=== PATIENT | female | born 1980 | race American Indian/Alaskan Native ===

== ENCOUNTER 2016-10-12 05:44 | Emergency (ER) | payer MEDICAID ==
[2016-10-12] MEDS ORDERED: Ondansetron 4 MG Tab.DIS PO ONE ×2 (06:12→06:42)
[2016-10-12] MEDS ORDERED: Alum Hydroxide/Mag Hydroxide 15 ML, Lidocaine 2% 15 ML PO ONE ×2 (06:13)
[2016-10-12 06:17] VITALS: BP 148/94
--- NOTE | 2016-10-12 06:20 | EDM.PDOC ---
ED HPI GI/ABDOMINAL - General Chief Complaint: Gastrointestinal Problem Stated Complaint: STOMACH PAIN Time Seen by Provider: 10/12/16 06:10 Source: Reports: Patient, Old records History Limitations: Reports: No limitations - History of Present Illness INITIAL COMMENTS - FREE TEXT/NARRATIVE: Epigastric and LUQ abdominal pain that began around 10 pm last night and progressed. Has had vomiting. No bleeding. No fever. No change in bowel habits. Drinks a lot of caffeine containing beverages. No self tx. Has had similar, less severe pain in the past. No melena. Symptom Onset Date: 10/11/16 Symptom Onset Time: 22:00 Timing/Duration: Reports: Hour(s): Location: other (epigastric) Quality: Reports: burning Severity: moderate Improves with: Reports: other (none) Worsens with: Reports: other (unknown) - Related Data Allergies/ADRs: Allergies Allergy/AdvReac Type Severity Reaction Status Date / Time No Known Allergies Allergy Verified 10/12/16 06:09 Home Meds: Home Meds busPIRone [Buspar] 30 mg PO BID 03/20/14 [History] Amphetamine/Dextroamphetamine [Adderall XR] 20 mg PO DAILY 12/11/14 [History] Omeprazole 40 mg PO DAILY #14 cap.sr 10/12/16 [Rx] Ondansetron [Zofran ODT] 4 mg PO Q6H PRN #7 tab.dis 10/12/16 [Rx] Past Medical History HEENT History: Reports: None Cardiovascular History: Reports: None Respiratory History: Reports: Other (see below) Other Respiratory History: STATES I HAVE CHRONIC COUGH Gastrointestinal History: Reports: Gastritis, GERD, Helicobacter pylori, Other ( see below) Other Gastrointestinal History: ANAL FISSURE Genitourinary History: Reports: None 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: , Other (see below) Other OB/BYN History: V PARA IV AB I D&C FOR RETAINED POST AB Musculoskeletal History: Reports: Back pain, chronic Neurological History: Reports: None Other Neuro History: DJD OF LUMBAR SPINE Psychiatric History: Reports: ADHD, Addiction, Anxiety, Depression, Suicide attempt Endocrine/Metabolic History: Reports: Obesity/BMI 30+ Hematologic History: Reports: None Immunologic History: Reports: None Oncologic (Cancer) History: Reports: None Dermatologic History: Reports: None - Infectious Disease History Infectious Disease History: Reports: Chicken pox - Past Surgical History Head Surgeries/Procedures: Reports: None HEENT Surgical History: Reports: Adenoidectomy, Tonsillectomy GI Surgical History: Reports: Colonoscopy, EGD Female Surgical History: Reports: Tubal ligation Social & Family History - Family History Other HEENT Family History: SEE HX - Tobacco Use Smoking Status *Q: Current Every Day Smoker Years of Tobacco use: 20 Packs/Tins Daily: 0.5 - Caffeine Use Caffeine Use: Reports: None - Alcohol Use Days Per Week of Alcohol Use: 0 - Recreational Drug Use Recreational Drug Use: Yes Drug Use in Last 12 Months: Yes Recreational Drug Type: Reports: Marijuana/Hashish Other Recreational Drug Type: SMOKED POT 06/29. STATES HAD A COUPLE BOWLS. Recreational Drug Use Frequency: Binges Recreational Drug Last Use: 06/29 - Living Situation & Occupation Living situation: Reports: single ED ROS GENERAL - Review of Systems Review Of Systems: See Below Constitutional: Reports: no symptoms HEENT: Reports: No symptoms Respiratory: Reports: No Symptoms Cardiovascular: Reports: No symptoms GI/Abdominal: Reports: Abdominal pain (epigastric), Decreased appetite, Nausea, Vomiting. Denies: Constipation, Diarrhea, Distension, Hematemesis, Hematochezia , Melena, Stool incontinence : Reports: no symptoms Musculoskeletal: Reports: no symptoms Skin: Reports: no symptoms Neurological: Reports: No Symptoms Psychiatric: Reports: No symptoms Hematologic/Lymphatic: Reports: no symptoms ED EXAM, GI/ABD - Physical Exam Exam: See Below Exam Limited By: No limitations General Appearance: alert, WD/WN, anxious, mild distress Eyes: bilateral: normal appearance Ears: normal external exam, normal canal, hearing grossly normal, normal TMs Nose: normal inspection, normal mucosa, no blood Throat/Mouth: Normal inspection, Normal lips, Normal teeth, Normal gums, Normal oropharynx, Normal voice, No airway compromise Head: atraumatic, normocephalic Neck: normal inspection, supple, non-tender Respiratory/Chest: no respiratory distress, lungs clear, normal breath sounds, no accessory muscle use Cardiovascular: regular rate, rhythm, no edema GI/Abdominal: soft, no distention, tenderness (epigastrium only). No: distention, guarding Back Exam: normal inspection Extremities: normal inspection, normal range of motion, non-tender, no pedal edema Neurological: alert, oriented, CN II-XII intact, normal cognition, normal gait Psychiatric: anxious Skin Exam: Warm, Dry, Intact, Normal color, No rash Lymphatic: no adenopathy Course - Vital Signs Text/Narrative:: Zofran ODT 4 mg SL, GI cocktail po-much better Zofran ODT 4 mg SL, Acetaminophen 1000 mg po, Protonix 40 mg po, LR 1000 ml IV, Reglan 10 mg IV Last Recorded V/S: Last Vital Signs Temp 35.4 C 10/12/16 06:16 Pulse 86 10/12/16 06:16 Resp 20 10/12/16 06:16 BP 148/94 H 10/12/16 06:16 Pulse Ox 98 10/12/16 06:16 - Orders/Labs/Meds Meds: Medications Discontinued Medications Generic Name Dose Route Start Last Admin Trade Name Mikelq PRN Reason Stop Dose Admin Acetaminophen 1,000 mg 10/12/16 06:42 10/12/16 07:06 Tylenol Extra Strength PO 10/12/16 06:43 1,000 mg ONETIME ONE Administration Al Hydroxide/Mg Hydroxide 15 0 ml 10/12/16 06:13 10/12/16 06:32 ml/ Lidocaine HCl 15 ml PO 10/12/16 06:14 15 ml ONETIME ONE Administration Lactated Ringer's 1,000 mls @ 1,000 mls/hr 10/12/16 07:41 10/12/16 08:16 Ringers, Lactated IV 10/12/16 08:40 1,000 mls/hr BOLUS ONE Administration Metoclopramide HCl 10 mg 10/12/16 07:42 10/12/16 08:16 Reglan IVPUSH 10/12/16 07:43 10 mg ONETIME ONE Administration Ondansetron HCl 4 mg 10/12/16 06:12 10/12/16 06:21 Zofran Odt PO 10/12/16 06:13 4 mg ONETIME ONE Administration Ondansetron HCl 4 mg 10/12/16 06:42 10/12/16 07:06 Zofran Odt PO 10/12/16 06:43 4 mg ONETIME ONE Administration Pantoprazole Sodium 40 mg 10/12/16 06:43 10/12/16 07:06 Protonix PO 10/12/16 06:44 40 mg NOW STA Administration Pantoprazole Sodium 40 mg 10/12/16 07:41 10/12/16 08:16 Protonix Iv IVPUSH 10/12/16 07:42 40 mg ONETIME ONE Administration Departure - Departure Time of Disposition: 09:12 Disposition: Home, Self-Care 01 Condition: good Clinical Impression: Gastritis Qualifiers: Gastritis type: unspecified gastritis Chronicity: acute Gastritis bleeding: without bleeding Qualified Code(s): K29.00 - Acute gastritis without bleeding Prescriptions: Omeprazole 40 mg PO DAILY #14 cap.sr Ondansetron [Zofran ODT] 4 mg PO Q6H PRN #7 tab.dis PRN Reason: Nausea Referrals: Quita Main NP [Primary Care Provider] - Forms: ED Department Discharge Additional Instructions: Take omeprazole every day. Use Zofran as directed for nausea. Take acetaminophen 1000 mg every 6 hrs for pain relief. Take Maalox 30 ml after meals and at bedtime for added relief. Avoid: caffeine, carbonated beverages, tobacco, alcohol, ibuprofen, Aleve, or aspirin. Recheck with your provider later this week, call for an appt.
[2016-10-12] MEDS ORDERED: Acetaminophen 500 MG Tab PO ONE (06:42)
[2016-10-12] MEDS ORDERED: Pantoprazole 40 MG Tab.CR PO STA (06:43)
[2016-10-12] MEDS ORDERED: Lactated Ringers 1,000 ML IV ONE (07:41)
[2016-10-12] MEDS ORDERED: Pantoprazole 40 MG Vial IVPUSH ONE (07:41)
[2016-10-12] MEDS ORDERED: Metoclopramide 10 MG/2 ML SDV IVPUSH ONE (07:42)
== END 2016-10-12 09:45 | disposition home or self-care (01) ==
LOC: FB.ED 05:44
DX: K29.00 Acute gastritis without bleeding (principal); F17.210 Nicotine dependence, cigarettes, uncomplicated
CPT/HCPCS: 96361; 96374; 96375; 99284; A9270; C9113; J2765; J7120

== ENCOUNTER 2017-01-30 22:49 | Emergency (ER) | payer MEDICAID ==
[2017-01-30 23:15] VITALS: BP 106/66
[2017-01-30] MEDS ORDERED: Ondansetron 4 MG Tab.DIS PO ONE (23:17)
[2017-01-30] MEDS ORDERED: Acetaminophen 500 MG Tab PO ONE (23:18)
[2017-01-30] MEDS ORDERED: Dicyclomine 10 MG Cap PO ONE (23:18)
--- NOTE | 2017-01-30 23:24 | EDM.PDOC ---
ED HPI GENERAL MEDICAL PROBLEM - General Chief Complaint: Abdominal Pain Stated Complaint: TIRED/NOT FEELING WELL Time Seen by Provider: 01/30/17 23:10 Source of Information: Reports: Patient, Old Records History Limitations: Reports: No Limitations - History of Present Illness INITIAL COMMENTS - FREE TEXT/NARRATIVE: 36 yo female here with low, central abdominal pain since yesterday that is getting worse. Has nausea without vomiting. No fever. No change in bowels. Pain seems to wax and wane somewhat. No self tx. Recently took out a tampon that had been in place for an extended period of time. No dysuria. Hx of bacterial vaginosis, last tx for this 3 weeks ago. Admits to use of marijuana and methamphetamine earlier today. Onset: Other Onset Date: 01/28/17 Duration: Day(s):, Getting Worse Location: Reports: Abdomen Quality: Reports: Other (crampy) Severity: Moderate Improves with: Reports: None Worsens with: Reports: None Context: Reports: Other (no hx of the same.) Associated Symptoms: Reports: Nausea/Vomiting (no vomiting). 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) (none) Left Lower Abdomen Pain Score (Numeric/FACES): 4 - Related Data Allergies Allergy/AdvReac Type Severity Reaction Status Date / Time No Known Allergies Allergy Verified 10/12/16 06:09 Home Meds: Home Meds busPIRone [Buspar] 30 mg PO BID 03/20/14 [History] Amphetamine/Dextroamphetamine [Adderall XR] 20 mg PO DAILY 12/11/14 [History] Omeprazole 40 mg PO DAILY #14 cap.sr 10/12/16 [Rx] Ondansetron [Zofran ODT] 4 mg PO Q6H PRN #7 tab.dis 10/12/16 [Rx] Dicyclomine [Bentyl] 20 mg PO QIDACANDBED PRN #14 tablet 01/31/17 [Rx] Sulfamethoxazole/Trimethoprim [Bactrim Ds Tablet] 1 each PO BID #10 tablet 01/31 [Rx] Past Medical History HEENT History: Reports: None Cardiovascular History: Reports: None Respiratory History: Reports: Other (See Below) Other Respiratory History: STATES I HAVE CHRONIC COUGH Gastrointestinal History: Reports: Gastritis, GERD, Helicobacter Pylori, Other ( See Below) Other Gastrointestinal History: ANAL FISSURE Genitourinary History: Reports: None 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: , Other (See Below) Other OB/BYN History: V PARA IV AB I D&C FOR RETAINED POST AB Musculoskeletal History: Reports: Back Pain, Chronic Neurological History: Reports: None Other Neuro History: DJD OF LUMBAR SPINE Psychiatric History: Reports: ADHD, Addiction, Anxiety, Depression, Suicide Attempt Endocrine/Metabolic History: Reports: Obesity/BMI 30+ Hematologic History: Reports: None Immunologic History: Reports: None Oncologic (Cancer) History: Reports: None Dermatologic History: Reports: None - Infectious Disease History Infectious Disease History: Reports: Chicken Pox - Past Surgical History Female Surgical History: Reports: Tubal Ligation Social & Family History - Family History Other HEENT Family History: SEE HX - Tobacco Use Smoking Status *Q: Current Every Day Smoker Years of Tobacco use: 20 Packs/Tins Daily: 0.5 - Caffeine Use Caffeine Use: Reports: None - Alcohol Use Days Per Week of Alcohol Use: 0 - Recreational Drug Use Recreational Drug Use: Yes Drug Use in Last 12 Months: Yes Recreational Drug Type: Reports: Marijuana/Hashish Other Recreational Drug Type: SMOKED POT 06/29. STATES HAD A COUPLE BOWLS. Recreational Drug Use Frequency: Binges Recreational Drug Last Use: 06/29 - Living Situation & Occupation Living situation: Reports: Single ED ROS GENERAL - Review of Systems Review Of Systems: See Below Constitutional: Reports: No Symptoms, Decreased Appetite. Denies: Fever, Chills HEENT: Reports: No Symptoms Respiratory: Reports: No Symptoms Cardiovascular: Reports: No Symptoms Endocrine: Reports: No Symptoms GI/Abdominal: Reports: Abdominal Pain, Anorexia, Decreased Appetite, Nausea. Denies: Black Stool, Bloody Stool, Constipation, Diarrhea, Difficulty Swallowing , Distension, Flatus, Hematemesis, Hematochezia, Melena, Stool Incontinence, Vomiting : Reports: No Symptoms Musculoskeletal: Reports: No Symptoms Skin: Reports: No Symptoms Neurological: Reports: No Symptoms Psychiatric: Reports: No Symptoms ED EXAM, GI/ABD - Physical Exam Exam: See Below Exam Limited By: No Limitations General Appearance: Alert, WD/WN, No Apparent Distress Eyes: Bilateral: Normal Appearance Ears: Normal External Exam, Normal Canal, Hearing Grossly Normal, Normal TMs Nose: Normal Inspection, Normal Mucosa, No Blood Throat/Mouth: Normal Inspection, Normal Lips Head: Atraumatic, Normocephalic Neck: Normal Inspection, Supple, Non-Tender Respiratory/Chest: No Respiratory Distress, Lungs Clear, Normal Breath Sounds, No Accessory Muscle Use Cardiovascular: Regular Rate, Rhythm, No Edema GI/Abdominal: Soft, No Distention, Hyperactive Bowel Sounds, Tenderness (mild diffuse, worse suprapubic area.). No: Guarding, Rebound, Rigidity, Hernia, McBurney's Sign, Mckenna's Sign Back Exam: Normal Inspection. No: CVA Tenderness (R), CVA Tenderness (L) Extremities: Normal Inspection, Normal Range of Motion, Non-Tender, No Pedal Edema Neurological: Alert, Oriented, CN II-XII Intact, Normal Cognition, No Motor/ Sensory Deficits Psychiatric: Normal Affect, Normal Mood Skin Exam: Warm, Dry, Intact, Normal Color, No Rash Lymphatic: No Adenopathy Course - Vital Signs Text/Narrative:: Orthostats-negative acetaminophen 1000 mg po, dicyclomine 20 mg po, Zofran ODT 4 mg SL Last Recorded V/S: Last Vital Signs Temp 36.6 C 01/30/17 22:55 Pulse 107 H 01/30/17 22:55 Resp 18 01/30/17 22:55 BP 106/66 01/30/17 22:55 Pulse Ox 100 01/30/17 22:55 - Orders/Labs/Meds Orders: Active Orders 24 hr Category Date Time Status CBC W/O DIFF,HEMOGRAM [HEME] Stat Lab 01/30/17 23:16 Ordered CRP [C-REACTIVE PROTEIN] [CHEM] Stat Lab 01/30/17 23:16 Ordered HCG QUALITATIVE,URINE [URCHEM] Stat Lab 01/30/17 23:17 Uncollected Meds: Medications Discontinued Medications Generic Name Dose Route Start Last Admin Trade Name Freq PRN Reason Stop Dose Admin Acetaminophen 1,000 mg 01/30/17 23:18 Tylenol Extra Strength PO 01/30/17 23:19 ONETIME ONE Dicyclomine HCl 20 mg 01/30/17 23:18 Bentyl PO 01/30/17 23:19 ONETIME ONE Ondansetron HCl 4 mg 01/30/17 23:17 Zofran Odt PO 01/30/17 23:18 ONETIME ONE Departure - Departure Time of Disposition: 00:20 Disposition: Home, Self-Care 01 Condition: Good Clinical Impression: Cystitis, Intestinal cramps - Discharge Information - My Orders Last 24 Hours: My Active Orders 01/30/17 23:16 CBC W/O DIFF,HEMOGRAM [HEME] Stat CRP [C-REACTIVE PROTEIN] [CHEM] Stat 01/30/17 23:17 HCG QUALITATIVE,URINE [URCHEM] Stat - Assessment/Plan Last 24 Hours: My Active Orders 01/30/17 23:16 CBC W/O DIFF,HEMOGRAM [HEME] Stat CRP [C-REACTIVE PROTEIN] [CHEM] Stat 01/30/17 23:17 HCG QUALITATIVE,URINE [URCHEM] Stat
[2017-01-31] MEDS ORDERED: Sulfamethoxazole/Trimethoprim 800-160 MG Tab PO ONE (00:12)
== END 2017-01-31 00:25 | disposition home or self-care (01) ==
LOC: FB.ED 22:49
DX: N30.90 Cystitis, unspecified without hematuria (principal); F41.9 Anxiety disorder, unspecified; F32.9 Major depressive disorder, single episode, unspecified; E66.9 Obesity, unspecified; F17.210 Nicotine dependence, cigarettes, uncomplicated; Z98.51 Tubal ligation status; Z79.899 Other long term (current) drug therapy; Z68.25 Body mass index [BMI] 25.0-25.9, adult
CPT/HCPCS: 36415; 81001; 85027; 86140; 87086; 87088; 99283; A9270; 87186

== ENCOUNTER 2018-09-04 07:33 | Emergency (ER) | payer MEDICAID ==
[2018-09-04 08:06] VITALS: BP 121/67
--- NOTE | 2018-09-04 08:06 | EDM.PDOC ---
ED HPI GENERAL MEDICAL PROBLEM - General Chief Complaint: Genitourinary Problem Stated Complaint: KIDNEY INFECTION Time Seen by Provider: 09/04/18 07:48 Source of Information: Reports: Patient History Limitations: Reports: No Limitations - History of Present Illness INITIAL COMMENTS - FREE TEXT/NARRATIVE: This 38-year-old 5 para 4104 woman with LMP approximately 08/28/18 presents with 2 day history of dysuria suprapubic discomfort chronic low back pain with exacerbation of the latter. Her last marijuana and methamphetamine was approximately a week ago hashish 2 years ago and has a past medical history of drug abuse here, pylori positive gastritis, cystitis, IBS, ADHD, TNA, tubal, smokes 1/2-1/4 pack per day , weight loss from 185 pounds 150 LESS PROBLEMS, THEN STRIKING IN THE PAST, ANAL FISSURE with surgery sphincterotomy 06/30/16. - Related Data Allergies Allergy/AdvReac Type Severity Reaction Status Date / Time No Known Allergies Allergy Verified 09/04/18 08:10 Home Meds: Home Meds busPIRone [Buspar] 30 mg PO BID 03/20/14 [History] Amphetamine/Dextroamphetamine [Adderall XR] 20 mg PO DAILY 12/11/14 [History] Omeprazole 40 mg PO DAILY #14 cap.sr 10/12/16 [Rx] Ondansetron [Zofran ODT] 4 mg PO Q6H PRN #7 tab.dis 10/12/16 [Rx] Dicyclomine [Bentyl] 20 mg PO QIDACANDBED PRN #14 tablet 01/31/17 [Rx] Sulfamethoxazole/Trimethoprim [Bactrim Ds Tablet] 1 each PO BID #10 tablet 01/31 [Rx] Past Medical History HEENT History: Reports: None Cardiovascular History: Reports: None Respiratory History: Reports: Other (See Below) Other Respiratory History: STATES I HAVE CHRONIC COUGH Gastrointestinal History: Reports: Gastritis, GERD, Helicobacter Pylori, Other ( See Below) Other Gastrointestinal History: ANAL FISSURE Genitourinary History: Reports: None 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: , 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 (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 Below) 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: V PARA IV AB I D&C FOR RETAINED POST AB Musculoskeletal History: Reports: Back Pain, Chronic Neurological History: Reports: None Other Neuro History: DJD OF LUMBAR SPINE Psychiatric History: Reports: ADHD, Addiction, Anxiety, Depression, Suicide Attempt Endocrine/Metabolic History: Reports: Obesity/BMI 30+ Hematologic History: Reports: None Immunologic History: Reports: None Oncologic (Cancer) History: Reports: None Dermatologic History: Reports: None - Infectious Disease History Infectious Disease History: Reports: Chicken Pox - Past Surgical History Female Surgical History: Reports: Tubal Ligation Social & Family History - Family History Other HEENT Family History: SEE HX - Caffeine Use Caffeine Use: Reports: None - Living Situation & Occupation Living situation: Reports: Single ED ROS GENERAL - Review of Systems Review Of Systems: ROS reveals no pertinent complaints other than HPI. ED EXAM, RENAL/ - Physical Exam Exam: See Below Text/Narrative:: Pleasant woman well muscled well-nourished woman laying on her stomach because of her left flank discomfort in moderate distress attended by another male Exam Limited By: No Limitations General Appearance: Alert, Moderate Distress Eye Exam: Bilateral Eye: Normal Inspection Ears: Normal External Exam Nose: Normal Inspection Throat/Mouth: Normal Inspection Head: Atraumatic Neck: Normal Inspection Respiratory/Chest: No Respiratory Distress, Lungs Clear, Normal Breath Sounds, No Accessory Muscle Use, Chest Non-Tender Cardiovascular: Normal Peripheral Pulses, Regular Rate, Rhythm, No Edema, No Murmur, No Rub GI/Abdominal: Normal Bowel Sounds, Soft, Other (Suprapubic tenderness and mild left CVA discomfort with percussion) (Female) Exam: Deferred Rectal (Female) Exam: Deferred Back Exam: Normal Inspection Extremities: Normal Inspection, Normal Range of Motion, Non-Tender, No Pedal Edema, Normal Capillary Refill Neurological: Alert, Oriented, CN II-XII Intact, Normal Cognition, Normal Gait, Normal Reflexes, No Motor/Sensory Deficits Psychiatric: Normal Affect Skin Exam: Warm, Intact, Normal Color Lymphatic: No Adenopathy Course - Vital Signs Last Recorded V/S: Last Vital Signs Temp 36.6 C 09/04/18 08:00 Pulse 91 09/04/18 08:00 Resp 18 09/04/18 08:00 BP 121/67 09/04/18 08:00 Pulse Ox 100 09/04/18 08:00 - Orders/Labs/Meds Orders: Active Orders 24 hr Category Date Time Status UA W/MICROSCOPIC [URIN] Stat Lab 09/04/18 07:45 Received Departure - Departure Time of Disposition: 08:05 (Urinary tract infection with suggestion of pyelonephritis plan treat with Cipro 500 mg twice a day 10 days, follow-up in 7 days . She has been treated for actively for potential STD with 150 mg Rocephin IM and 1 g azithromycin in the ED) Disposition: Home, Self-Care 01 Condition: Good Clinical Impression: Cystitis, Pyelonephritis - Discharge Information *PRESCRIPTION DRUG MONITORING PROGRAM REVIEWED*: Not Applicable *COPY OF PRESCRIPTION DRUG MONITORING REPORT IN PATIENT SURINDER: Not Applicable Instructions: Pyelonephritis, Adult, [id number] Referrals: Quita Main NP [Primary Care Provider] - Forms: ED Department Discharge Additional Instructions: Cystitis Treatment Septra DS 1 twice a day 6 tablets Follow-up with her doctor as needed in the next 7-14 days earlier if symptoms don't relent - My Orders Last 24 Hours: My Active Orders 09/04/18 07:45 UA W/MICROSCOPIC [URIN] Stat - Assessment/Plan Last 24 Hours: My Active Orders 09/04/18 07:45 UA W/MICROSCOPIC [URIN] Stat
[2018-09-04] MEDS ORDERED: cefTRIAXone 250 MG Vial IM ONE (08:17)
[2018-09-04] MEDS ORDERED: Azithromycin 250 MG Tab PO ONE (08:18)
[2018-09-06 02:11] LABS: CHLAMYDIA TRACHOMATIS, NAA Negative (Negative); NEISSERIA GONORRHOEAE, NAA Negative (Negative)
== END 2018-09-04 08:40 | disposition home or self-care (01) ==
LOC: FB.ED 07:33
DX: N12 Tubulo-interstitial nephritis, not specified as acute or chronic (principal); N30.90 Cystitis, unspecified without hematuria; K21.9 Gastro-esophageal reflux disease without esophagitis; F41.9 Anxiety disorder, unspecified; F32.9 Major depressive disorder, single episode, unspecified; F17.210 Nicotine dependence, cigarettes, uncomplicated; Z79.899 Other long term (current) drug therapy; Z98.51 Tubal ligation status
CPT/HCPCS: 80305; 81001; 87086; 87088; 87186; 87491; 87591; 96372; 99283; A9270; J0696

== ENCOUNTER 2023-04-17 21:14 | Emergency (ER) | payer MEDICAID ==
[2023-04-17] MEDS ORDERED: Sodium Chloride 0.9% 1,000 ML IV SCH (21:45)
[2023-04-17] MEDS ORDERED: Ondansetron 4 MG/2 ML SDV IVPUSH ONE (21:46)
[2023-04-17] MEDS ORDERED: Pantoprazole 40 MG Vial IVPUSH ONE (22:03)
[2023-04-17] MEDS: Ondansetron 4 MG/2 ML SDV IVPUSH ONE ×2 (22:20→22:30)
[2023-04-17 22:31] LABS: BILIRUBIN,URINE NEGATIVE (NEGATIVE); GLUCOSE,URINE NORMAL (NORMAL); KETONES,URINE NEGATIVE (NEGATIVE); LEUKOCYTE ESTERASE,URINE NEGATIVE (NEGATIVE); NITRITE,URINE NEGATIVE (NEGATIVE); OCCULT BLOOD,URINE NEGATIVE (NEGATIVE); PROTEIN,URINE NEGATIVE (NEGATIVE); UROBILINOGEN,URINE NORMAL (NEGATIVE)
[2023-04-17 22:31] LABS: BASOPHILS PERCENT AUTO 0.5 % (0.2-1.5); EOSINOPHILS PERCENT AUTO 0.3 % (0.6-8.1); HEMATOCRIT 38.6 % (34.2-48.2); LYMPHOCYTES ABSOLUTE AUTO 1.1 x10-3/uL (1.0-4.4); LYMPHOCYTES PERCENT AUTO 11.4 % (18.4-52.1); MEAN CORPUSCULAR HGB CONC 33.6 g/dL (31.9-34.8); MEAN CORPUSCULAR VOLUME 80.5 fL (76.7-100.5); MEAN PLATELET VOLUME 7.2 fL (7.1-12.4); MONOCYTES ABSOLUTE AUTO 0.6 x10-3/uL (0.3-1.0); MONOCYTES PERCENT AUTO 6.3 % (4.4-15.7); NEUTROPHILS ABSOLUTE AUTO 7.7 x10-3/uL (1.5-6.3); NEUTROPHILS PERCENT AUTO 81.5 % (30.8-76.2); PLATELET COUNT,PLT 433 x10(3)uL (151-488); RED CELL DISTRIBUTION WIDTH 15.2 % (12.3-16.5); WHITE BLOOD CELL COUNT,WBC 9.4 x10-3/uL (3.0-10.3)
[2023-04-17 22:32] LABS: BLOOD UREA NITROGEN,BUN 6 mg/dL (7-18); BUN/CREATININE RATIO 8.6 (9-20); CALCIUM 9.4 mg/dL (8.6-10.2); CARBON DIOXIDE,CO2 24 mmol/L (21-32); CHLORIDE,CL 102 mmol/L (100-110); CREATININE 0.7 mg/dL (0.55-1.02); ESTIMATED GFR 112 mL/min (>60); GLUCOSE RANDOM 118 mg/dL (80-116); SODIUM,NA 137 mmol/L (135-145)
[2023-04-17 22:34] LABS: BILIRUBIN DIRECT 0.18 mg/dL (0.10-0.20); PROTEIN TOTAL,TP 8.1 g/dL (6.0-8.0)
[2023-04-17 22:35] LABS: BILIRUBIN TOTAL 0.8 mg/dL (0.1-1.3)
[2023-04-17 22:40] LABS: AMPHETAMINES SCREEN, URINE POSITIVE (NEGATIVE); BARBITURATE SCREEN,URINE NEGATIVE (NEGATIVE); BENZODIAZEPINES SCREEN,URINE NEGATIVE (NEGATIVE); BUPRENORPHINE SCREEN,URINE NEGATIVE (NEGATIVE); METHADONE SCREEN, URINE NEGATIVE (NEGATIVE); METHAMPHETAMINE SCREEN, URINE POSITIVE (NEGATIVE); OXYCODONE SCREEN,URINE NEGATIVE (NEGATIVE); PROPOXYPHENE SCREEN,URINE NEGATIVE (NEGATIVE); THC SCREEN,URINE NEGATIVE (NEGATIVE)
[2023-04-17 22:41] LABS: APPEARANCE,URINE CLEAR (CLEAR); BACTERIA,URINE RARE (NS); COLOR,URINE YELLOW (YELLOW); RBC,URINE 0-5 (0-5); SQUAMOUS EPITHELIAL CELLS,UR FEW (NS,R,O); WBC,URINE 0-5 (0-5)
[2023-04-17 23:31] VITALS: BP 145/80; PULSE 98
== END 2023-04-17 23:21 | disposition home or self-care (01) ==
LOC: FB.ED 21:14
DX: K29.70 Gastritis, unspecified, without bleeding (principal); K21.9 Gastro-esophageal reflux disease without esophagitis; E66.9 Obesity, unspecified; Z68.31 Body mass index [BMI] 31.0-31.9, adult; Z79.899 Other long term (current) drug therapy
CPT/HCPCS: 36415; 80048; 80076; 80307; 81001; 81025; 82150; 83690; 83735; 85025; 86140; 96361; 96374; 96375; 99284; C9113; J2405; J7030

== ENCOUNTER 2023-10-07 00:49 | Emergency (ER) | payer MEDICAID ==
[2023-10-07] MEDS: Sodium Chloride 0.9% 10 ML Syringe FLUSH PRN (01:30)
[2023-10-07] MEDS: Sodium Chloride 0.9% 1,000 ML IV SCH (01:32)
[2023-10-07 01:47] LABS: BLOOD UREA NITROGEN,BUN 9 mg/dL (7-18); BUN/CREATININE RATIO 11.3 (9-20); CALCIUM 9.4 mg/dL (8.6-10.2); CARBON DIOXIDE,CO2 23 mmol/L (21-32); CHLORIDE,CL 102 mmol/L (100-110); CREATININE 0.8 mg/dL (0.55-1.02); EST CRCL DRUG DOSING (CG) 83.27 mL/min; ESTIMATED GFR 95 mL/min (>60); GLUCOSE RANDOM 124 mg/dL (80-116); POTASSIUM,K 4.5 mmol/L (3.5-5.3); SODIUM,NA 139 mmol/L (135-145)
[2023-10-07] MEDS: Prochlorperazine 10 MG/2 ML SDV IVPUSH ONE (01:50)
[2023-10-07 01:52] LABS: BASOPHILS PERCENT AUTO 0.4 % (0.2-1.5); EOSINOPHILS ABSOLUTE AUTO 0.1 x10-3/uL (0.0-0.8); EOSINOPHILS PERCENT AUTO 0.8 % (0.6-8.1); HEMATOCRIT 37.7 % (34.2-48.2); HEMOGLOBIN 11.7 g/dL (11.4-15.5); LYMPHOCYTES ABSOLUTE AUTO 1.3 x10-3/uL (1.0-4.4); LYMPHOCYTES PERCENT AUTO 15.7 % (18.4-52.1); MEAN CORPUSCULAR HEMOGLOBIN 25.4 pg (23.9-33.9); MEAN CORPUSCULAR HGB CONC 31.1 g/dL (31.9-34.8); MEAN CORPUSCULAR VOLUME 81.4 fL (76.7-100.5); MEAN PLATELET VOLUME 7.1 fL (7.1-12.4); MONOCYTES ABSOLUTE AUTO 0.5 x10-3/uL (0.3-1.0); MONOCYTES PERCENT AUTO 6.7 % (4.4-15.7); NEUTROPHILS ABSOLUTE AUTO 6.2 x10-3/uL (1.5-6.3); NEUTROPHILS PERCENT AUTO 76.4 % (30.8-76.2); PLATELET COUNT,PLT 506 x10(3)uL (151-488); RED BLOOD CELL COUNT 4.63 x10(6)uL (3.60-5.20); RED CELL DISTRIBUTION WIDTH 15.4 % (12.3-16.5); WHITE BLOOD CELL COUNT,WBC 8.1 x10-3/uL (3.0-10.3)
[2023-10-07] MEDS: Ketorolac 30 MG/ML SDV IVPUSH ONE (02:11)
[2023-10-07] MEDS: SUMAtriptan 6 MG/0.5 ML SDV SUBCUT ONE (02:11)
[2023-10-07 02:42] VITALS: BP 109/79; PULSE 101
== END 2023-10-07 02:38 | disposition home or self-care (01) ==
LOC: FB.ED 00:49
DX: G43.909 Migraine, unspecified, not intractable, without status migrainosus (principal); J32.9 Chronic sinusitis, unspecified; E66.9 Obesity, unspecified; Z79.899 Other long term (current) drug therapy; Z68.28 Body mass index [BMI] 28.0-28.9, adult
CPT/HCPCS: 80048; 85025; 96361; 96372; 96374; 96375; 99284; J0780; J1885; J3030; J3490; J7030

== ENCOUNTER 2025-03-23 15:47 | Emergency (ER) | payer MEDICAID ==
[2025-03-23] MEDS ORDERED: Miconazole 2% Crm 30 GM Tube TOP ONE (15:48)
[2025-03-23 15:59] VITALS: BP 119/77; PULSE 77
[2025-03-27 13:40] LABS: APTIMA MEDIA TYPE Unisex Swab; C. TRACHOMATIS BY TMA Negative (Negative); N. GONORRHOEAE BY TMA Negative (Negative)
== END 2025-03-23 17:15 | disposition home or self-care (01) ==
LOC: FB.ED 15:47
DX: N76.0 Acute vaginitis (principal); K21.9 Gastro-esophageal reflux disease without esophagitis; F17.210 Nicotine dependence, cigarettes, uncomplicated; Z90.49 Acquired absence of other specified parts of digestive tract; Z79.899 Other long term (current) drug therapy
CPT/HCPCS: 87210; 87491; 87591; 99283; A9270